=== PATIENT | female | born 1995 | race Two or more races ===

== ENCOUNTER 2023-05-15 22:13 | Emergency (ER) | payer OTHER ==
[~2023-05-15] VITALS: Ht 154.9 cm; Wt 90.7 kg
[2023-05-15 23:09] LABS: PH,URINE 5.5 (5.0-8.0); URINE APPEARANCE Clear; URINE BILIRRUBIN Negative (NEGATIVE); URINE BLOOD Large; URINE COLOR Yellow; URINE GLUCOSE Negative (NEGATIVE); URINE LEUKOCYTE Negative; URINE NITRATE Negative; URINE PROTEIN Negative (NEGATIVE); URINE UROBILINOGEN 0.2 E.U./dl
[2023-05-15 23:10] LABS: HEMATOCRIT 33.8 % (36.0-45.00); HEMOGLOBIN 11.7 g/dL (12.0-15.00); MEAN CELL VOLUME 86.8 fL (80.00-100.00); MEAN CORPUSCULAR HEMOGLOBIN 30.1 pg (27.00-32.0); MEAN CORPUSCULAR HGB CONC 34.6 g/dl (32.0-36.0); PLATELET COUNT 305 K/uL (150-450); RED BLOOD COUNT 3.89 M/uL (4.00-6.00); RED CELL DISTRIBUTION WIDTH 13.3 % (11.5-14.5)
[2023-05-15 23:13] LABS: URINE BACTERIA 118.4 uL (0.0-1933); URINE EPITHELIAL CELLS 7.8 uL (0.0-38.8); URINE RBC 245.3 uL (0.0-20.8); URINE WBC 4.1 uL (0.0-23.2)
== END 2023-05-16 02:30 ==
LOC: ER 22:13
PROVIDERS: Emergency Medicine
DX: O20.8 Other hemorrhage in early pregnancy (principal); Z3A.01 Less than 8 weeks gestation of pregnancy